=== PATIENT | female | born 1965 | race Caucasian/White ===

== ENCOUNTER → 2017-07-17 | Outpatient (CLI) | payer OTHER ==
[~2017-07-17] MED LIST: ESTROGEN; PROGESTERON
[2017-07-20 19:06] LABS: HSV-1 DNA Negative (Negative); HSV-2 DNA Negative (Negative)
== END ==
LOC: LAB SHORT 12:00 → LAB 12:00
PROVIDERS: Family Medicine
DX: R21 Rash and other nonspecific skin eruption (principal)
CPT/HCPCS: 87529

== ENCOUNTER 2018-06-19 09:42 | Day surgery (SDC) | payer OTHER ==
[~2018-06-19] VITALS: Ht 170.2 cm; Wt 81.0 kg
[~2018-06-19 09:42] MED LIST changes: +BIOTIN1 MG PO; +CYAN500 PO; +GABA300 PO; +LORA.5 PO; +MULTI-DAY PLUS1 EAC1 PO; +PREG50 PO; +VITAMIN D35000 UNIT PO
--- NOTE | 2018-06-19 10:28 | NUR ---
06/19/18 1028 Martha Caldwell 1ST IV ATTEMPT IN RH INFILTRATED, STARTED BY LORENA DAVE 2ND IV ATTEMPT IN RAC SUCCESSFUL, STARTED BY LORENA DAVE
--- NOTE | 2018-06-19 12:09 | NUR ---
06/19/18 1209 Martha Caldwell LATE ENTRY FOR TODAY DURING DISCHARGE PATIENT C/O ABD CRAMPING RATED AT 5/10. PATIENT DID NOT WANT ANY MEDICATION FOR CRAMPING. ENCOURAGED PATIENT TO CHANGE POSITION, PATIENT SAT UP IN BED AND THIS POSITION HELPED DECREASE THE CRAMPING. RN THEN ENCOURAGED PATIENT TO SIT ON THE EDGE OF THE BED, PATIENT COMPLIED AND STATED THAT CRAMPING WAS BETTER, RATED AT 4/10. RN INSTRUCTED PATIENT THAT THIS IS GAS FROM THE COLONOSCOPY AND THAT SHE JUST NEEDED TO PASS IT. PATIENT VERBALIZES UNDERSTANDING BUT DID NOT WANT TO PASS GAS INFRONT OF THE RN. PATIENT WANTED TO BE DISCHARGED HOME. RN INSTRUCTED PATIENT TO NOT HOLD GAS IN. PATIENT DISCHARGED HOME.
== END 2018-06-19 11:44 | disposition home or self-care (01) ==
LOC: ORSCSDS 09:42
PROVIDERS: Surgery
PROC: 0DBN8ZX Excision of Sigmoid Colon, Via Natural or Artificial Opening Endoscopic, Diagnostic (ICD-10-PCS; principal; 2018-06-19 10:45)
DX: Z12.11 Encounter for screening for malignant neoplasm of colon (principal); D12.5 Benign neoplasm of sigmoid colon; F32.9 Major depressive disorder, single episode, unspecified; Z79.899 Other long term (current) drug therapy
CPT/HCPCS: 88305; J0330; J1980; J2405; J2704; J7120

== ENCOUNTER 2019-03-27 20:43 | Emergency (ER) | payer OTHER ==
[~2019-03-27] VITALS: Ht 172.7 cm; Wt 74.8 kg
[2019-03-27 22:11] LABS: BASOPHILS ABSOLUTE AUTO 0.02 K/mm3 (0.00-0.23); BASOPHILS PERCENT AUTO 0 % (0-2); EOSINOPHILS ABSOLUTE AUTO 0.01 K/mm3 (0.00-0.68); EOSINOPHILS PERCENT AUTO 0 % (0-6); Hematocrit 42.8 % (33.0-51.0); Hemoglobin 14.2 g/dL (11.5-16.0); IMMATURE GRAN ABSOLUTE AUTO 0.01 K/mm3 (0.00-0.10); IMMATURE GRAN PERCENT AUTO 0 % (0-1); LYMPHOCYTES ABSOLUTE AUTO 0.62 K/mm3 (0.84-5.20); LYMPHOCYTES PERCENT AUTO 14 % (21-46); MONOCYTES ABSOLUTE AUTO 0.79 K/mm3 (0.16-1.47); MONOCYTES PERCENT AUTO 18 % (4-13); Mean Corpuscular HGB 30.3 pg (26.0-34.0); Mean Corpuscular HGB Conc 33.2 g/dL (31.5-36.5); Mean Corpuscular Volume 92 fL (80-100); Mean Platelet Volume 9.9 fL (9.1-12.4); NEUTROPHILS ABSOLUTE AUTO 3.03 K/mm3 (1.96-9.15); NEUTROPHILS PERCENT AUTO 68 % (41-73); Platelet Count 206 K/mm3 (150-400); RDW Coefficient Variation 12.2 % (11.7-14.2); RDW Standard Deviation 41.1 fL (35.1-46.3); Red Blood Cell Count 4.68 M/mm3 (3.80-5.20); White Blood Cell Count 4.48 K/mm3 (4.00-11.30)
[2019-03-27 22:29] LABS: Alanine Aminotransfer (ALT/SGP 37 U/L (12-78); Albumin, Blood 3.8 g/dL (3.4-5.0); Albumin/Globulin Ratio 0.9 (0.8-1.8); Alk Phos 80 U/L (50-136); Anion Gap 7 mmol/L (6-16); Aspartate Aminotrans (AST/SGOT 21 U/L (12-37); Bilirubin, Total 0.4 mg/dL (0.1-1.0); Blood Urea Nitrogen 13 mg/dL (8-24); Bun/Creatinine Ratio 15.6 (12.0-20.0); CO2, Blood 26 mmol/L (21-32); Calcium, Blood 9.1 mg/dL (8.5-10.1); Chloride, Blood 106 mmol/L (98-108); Creatinine, Blood 0.83 mg/dL (0.40-1.00); Globulin, Blood 4.1 g/dL (2.2-4.0); Glomerular Filtration Rate >60 (60-); Glucose, Blood 115 mg/dL (70-99); Potassium, Blood 3.7 mmol/L (3.5-5.5); Sodium, Blood 139 mmol/L (136-145); Total Protein, Blood 7.9 g/dL (6.4-8.2)
[2019-03-27 22:31] LABS: Influenza A Positive (NEGATIVE); Influenza B Negative (NEGATIVE)
== END 2019-03-27 23:35 | disposition home or self-care (01) ==
LOC: ER 20:43
PROVIDERS: Emergency Medicine
DX: J10.1 Influenza due to other identified influenza virus with other respiratory manifestations (principal); Z85.3 Personal history of malignant neoplasm of breast; Z88.2 Allergy status to sulfonamides; Z90.13 Acquired absence of bilateral breasts and nipples
CPT/HCPCS: 71046; 80053; 85025; 87804; 99283-25

== ENCOUNTER → 2024-01-20 | Outpatient (CLI) | payer BC | END | disposition home or self-care (01) | LOC: LAB 15:57 → LAB SHORT 15:57 | DX: N39.0 Urinary tract infection, site not specified (principal) | CPT/HCPCS: 87086 ==

== ENCOUNTER 2024-07-14 21:31 | Emergency (ER) | payer BC ==
[~2024-07-14] VITALS: Ht 170.2 cm; Wt 65.8 kg
[2024-07-14 21:49] VITALS: BP 136/84
== END 2024-07-14 23:04 | disposition home or self-care (01) ==
LOC: ER 21:31
DX: S01.81XA Laceration without foreign body of other part of head, initial encounter (principal); W26.9XXA Contact with unspecified sharp object(s), initial encounter
CPT/HCPCS: 12013; 99282-25